=== PATIENT | male | born 1940 | race Caucasian/White ===

== ENCOUNTER 2019-09-28 10:15 | Outpatient (REF) | payer MEDICARE, SELFPAY ==
[2019-09-28 12:36] LABS: Anion Gap 8.9 mmol/L (3-11); BUN 20 mg/dL (7-18); CO2 28.1 mmol/L (21.0-32.0); Calcium 9.2 mg/dL (8.5-10.1); Calculated LDL 78 mg/dL; Chloride 109 mmol/L (98-107); Cholesterol 142 mg/dL (50-200); Estimated GFR 58.86 (mL/min/1.73m2); Glucose 81 mg/dL (70-100); HDL Cholesterol 52 mg/dL (40-60); Potassium 4.3 mmol/L (3.5-5.1); Sodium 146 mmol/L (136-145); Triglyceride 60 mg/dL (30-150)
== END 2019-09-28 10:35 ==
LOC: NCHCN 10:15
PROVIDERS: PCP Internal Medicine; Visit Provider Internal Medicine
DX: I25.10 Atherosclerotic heart disease of native coronary artery without angina pectoris (principal); J44.9 Chronic obstructive pulmonary disease, unspecified; Z72.0 Tobacco use; R05 Cough; M54.16 Radiculopathy, lumbar region; I83.90 Asymptomatic varicose veins of unspecified lower extremity
CPT/HCPCS: 80048; 80061

== ENCOUNTER 2019-10-05 02:57 | Outpatient (CLI) | payer MEDICARE, SELFPAY ==
--- NOTE | 2019-10-05 09:45 | DI.RAD_ITS ---
EXAM: XR HIP LT COMPLETE AP PELVIS, LT KNEE 3 VIEWS CLINICAL HISTORY: LT LEG PAIN M79.605 COMPARISON: XR KNEE LT 3V AP,LAT,KESHIA from 10/05/2019 FINDINGS: Three views of the hip and three views of the left knee were obtained. There is moderate narrowing o f the cartilaginous joint spaces of both hips superiorly with slight subchondral sclerosis of the christal tabula. Mild hypertrophic spurring of the acetabula noted bilaterally. Mild spurring of the greater trochanters of the femurs noted. Mild DJD of lower lumbar spine and SI joints bilaterally. Cartilaginous joint spaces of the knee appear fairly well maintained. Mild marginal osteophyte forma tion noted. Small enthesophyte of the superior patellar pole noted. 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
--- NOTE | 2019-10-05 10:40 | DI.MRI_ITS ---
EXAM: MR LUMBAR SPINE WO CLINICAL HISTORY: LUMBAR RADICULOPATHY M54.16, LT LEG PAIN M79.605. TECHNIQUE: Multiplanar multisequence MRI was performed according to the usual protocol. COMPARISON: No exams were available for comparison FINDINGS: No significant bony signal abnormality is seen. Conus medullaris appears intact. There are changes of facet hypertrophy at L4-5 and L5-S1 bilaterally. Neural foramina appear fairly well maintained. No central canal spinal stenosis. No disc herniation identified in the regions surveyed. Mild disc bulges noted at L3-4 L4-5 and L5-S1. Incidental bilateral renal cysts noted. IMPRESSION: Mild to moderate facet hypertrophic changes at L4-5 and L5-S1. No evidence of disc herniation.
== END 2019-10-05 03:17 ==
PROVIDERS: PCP Internal Medicine; Visit Provider Internal Medicine
DX: M54.16 Radiculopathy, lumbar region (principal); M79.605 Pain in left leg; M47.27 Other spondylosis with radiculopathy, lumbosacral region; M51.16 Intervertebral disc disorders with radiculopathy, lumbar region; M16.0 Bilateral primary osteoarthritis of hip; M17.12 Unilateral primary osteoarthritis, left knee
CPT/HCPCS: 73562; 72148; 73502

== ENCOUNTER → 2020-01-11 10:49 | Outpatient (BNVA) | payer MEDICARE, SELFPAY | PROVIDERS: PCP Internal Medicine; Referring Provider Internal Medicine; Visit Provider Physical Therapy Assistant | DX: Z12.11 Encounter for screening for malignant neoplasm of colon (principal); Z86.010 Personal history of colon polyps; Z80.0 Family history of malignant neoplasm of digestive organs; I10 Essential (primary) hypertension; J44.9 Chronic obstructive pulmonary disease, unspecified ==

== ENCOUNTER 2020-01-29 08:00 | Day surgery (SDC) | payer MEDICARE, SELFPAY ==
--- NOTE | 2020-01-29 06:51 | W.COLOREPORT ---
Date of service: 01/29/20 Time of Service: 09:25 Colonoscopy Report Date of procedure: 01/29/20 Pre-op diagnosis general: Hx of colon polyps Post-op diagnosis procedure note: other (jiang-diverticulosis and multiple polyps) Procedure: Colonoscopy with polypectomy by hot snare and cold forceps Surgeon: Althea Lara Anesthesia proc note operative: other (General/ ASA 2/Kizzy Ureña, ARMANDO ) Estimated blood loss (mL): 5 Pathology: other (Cecal polyp, ascending polyps x3, transverse polyp x2, rectal polyps x7) Complications: None Disposition: same day Indications: 79 y/o male with history of HTN and COPD presents for colonoscopy screening pre-op. His last screening was in 2014, which was remarkable for tubular adenomatous polyps. He reports a family history of colon cancer in his father at the age of 68. He denies any changes in bowel habits including bloody or black tarry stools, abdominal pain, diarrhea or constipation. He denies constitutional symptoms. Risks, benefits and complications have been reviewed. Complications include but are not limited to bleeding, pain, perforation, missed small lesion/polyp, sore throat, aspiration and adverse reaction to the medications. Questions were entertained and answered to their satisfaction and they wished to proceed. No guarantees were given or implied. Prep: Miralax/Dulcolax Procedure Start Time: 09:25 Procedure End Time: 10:14 Retraction Time: 37 minutes Findings: Moderate Jiang-diverticulosis Multiple sessile polyps and one pedunculated polyp Procedure Description: After informed consent was obtained the patient was taken to the procedure room and placed in a left decubitous position. Monitors were applied and a time out was done. The patients name, date of , procedure, allergies to medications and metal in their body was reviewed. The patient was then sedated. Once sedated and comfortable a rectal exam was done. External exam was normal. Internal exam revealed a normal sphincter tone and no palpable masses. The prostate felt smooth. Scrotum was noted to be large. Normal testicles were palpated. There was small bowel withing the scrotum. The scope was then introduced and retro-flexed. Grade 1 internal hemorrhoids were identified. Multiple flat polyps were noted on retro-flexion. 4 polyps were removed with cold forceps. The scope was then advanced to the cecum without difficulty. The TI and appendiceal orifice were identified. The prep was adequate. Retraction of the scope was difficult due to the patient chronic cough. The scope was then slowly retracted over [] minutes back into the rectum. Polyps were removed with cold forceps in the cecum x1, ascending colon at the ileocecal valve and ascending colon distal to the ileocecal valve, transverse colon x2, and rectum x3. One polyp was removed with a hot snare in the ascending colon just distal to the ileocecal valve. The scope was removed and the patient was woken up and taken back to Same day surgery in stable condition. The patient tolerated the procedure well and there were no immediate complications. Follow up: The patient should follow up in 3 years unless they develop changes in bowel habits or other new gastrointestinal complaints.
--- NOTE | 2020-01-29 06:52 | W.PM.DSUDISC ---
Discharge Plan Disposition Patient Disposition: HOME Condition: Good Discharge Details Reason For Visit: Hx of polyp/ Colon Cancer screening Attending Provider: Althea Lara Primary Care Provider: Cristopher Gutierrez Home Meds and New Rx's Prescriptions: Continued simvastatin 10 MG tablet 10 mg PO DAILY RF: 0 amlodipine [Norvasc] 5 MG tablet 5 mg PO DAILY RF: 0 fluticasone propionate 50 mcg/actuation spray,suspension 1 spray LOREN DAILY RF: 0 Spiriva with HandiHaler 18 mcg capsule, w/inhalation device 1 cap IH DAILY RF: 0 acetaminophen 500 mg Tablet 1,000 mg PO PRN PRNRF: 0 Discontinued polyethylene glycol 3350 17 gram/dose powder 238 g PO ONCE Qty: 238 RF: 0 bisacodyl [Dulcolax (bisacodyl)] 5 mg tablet,delayed release (DR/EC) 5 mg PO ONCE Qty: 4 RF: 0 Discharge Instructions Instructions: Diverticulosis (DC), Colorectal Polyps (GEN) Additional Instructions: Findings: Polyps x 13 Diverticulosis Follow up: 3 years Please call if you develop: fevers >101.5 Nausea or Vomiting Abdominal pain that is not transient DAY SURGERY UNIT POST ENDOSCOPY INSTRUCTIONS 1. Because there will be medication in your system for the next 24 hours, you may feel a little sleepy. Your coordination will be affected. Therefore: a. Do not drive or operate dangerous equipment for 24 hours. b. Do not drink alcohol beverages for 24 hours (not even beer). c. Plan to go home and rest for the day. 2. Generally there are no restrictions on your activity after a day or so has gone by, but you may feel a bit fatigued for a few days. 3 After you arrive home you may have a light meal and return to a normal diet as you can tolerate it without feeling sick to your stomach. 4. After surgery, you may feel pain or discomfort. This should be only transient, but if it persists please contact your doctor. 5. If there are any questions regarding the findings of your procedure, please feel free to contact your doctor. 6. If you are unable to contact your doctor with a problem, contact the hospital at [phone]. 7. Continue all your regular medications unless directed otherwise. I understand the above instructions and have no questions. Signature of Patient or Responsible Adult Escort Date/Time Name of Responsible Adult Escort Signature of Nurse Date/Time Activity:: Activity as Tolerated Diet:: high fiber diet Discharge Orders Discharge Orders: Discharge Order (Routine); Ordered 01/29/20 Ordered By: Althea Lara DS: Diagnosis Discharge Diagnosis (1) Diverticulosis large intestine w/o perforation or abscess w/o bleeding: Status: Acute (2) Colorectal polyps: Status: Acute
[2020-01-29 08:14] VITALS: BP 115/56; PULSE 65; RESP 16; TEMP 37; O2SAT 98
[2020-01-29] MEDS: Lactated Ringers 1,000 ML 80 ML IV (08:46)
--- NOTE | 2020-01-29 09:28 | BOWEL_PTH ---
PATIENT: Jorge Vang LOC: [facility] U#:[id number] AGE/SX: 79/M ROOM: RE01/29/[address]: Althea Lara MD : [id number] BED: DIS: 01/29/2020 SPEC #: [id number] RECD: 01/29/20 12:50 STATUS: NORMA REQ #: [id number] BRENDAN: 01/29/20 09:[address]: Althea Lara DEPT: Surgical Specimen RECD BY: Chaparrita Starr ENTERED: 01/29/20 12:52 SP TYPE: Bowel OTHR DR: Cristopher Gutierrez Tissues: 1 - BIOPSY BOWEL 2 - BIOPSY BOWEL 3 - BIOPSY BOWEL 4 - BIOPSY BOWEL 5 - BIOPSY BOWEL 6 - BIOPSY BOWEL Procedures: GROSS AND MICRO LEVEL 4 Comments: [id number]
[2020-01-29 10:47] VITALS: BP 125/58; PULSE 65; RESP 16; TEMP 36; O2SAT 96
== END 2020-01-29 11:05 | disposition home or self-care (01) ==
LOC: SUR 08:00
PROVIDERS: PCP Internal Medicine; Visit Provider Surgery
PROC: 0DJD8ZZ Inspection of Lower Intestinal Tract, Via Natural or Artificial Opening Endoscopic (ICD-10-PCS; CPT 45378; principal; 2020-01-29 09:30)
DX: Z12.11 Encounter for screening for malignant neoplasm of colon (principal); D12.0 Benign neoplasm of cecum; D12.2 Benign neoplasm of ascending colon; D12.3 Benign neoplasm of transverse colon; K62.1 Rectal polyp; K57.30 Diverticulosis of large intestine without perforation or abscess without bleeding; K64.1 Second degree hemorrhoids; I10 Essential (primary) hypertension; J44.9 Chronic obstructive pulmonary disease, unspecified
CPT/HCPCS: 45385; 45380; 88305

== ENCOUNTER 2020-06-04 01:08 | Outpatient (CLI) | payer MEDICARE, SELFPAY ==
--- NOTE | 2020-06-04 10:05 | DI.RAD_ITS ---
EXAM: XR SHOULDER RT COMPLETE 2+V CLINICAL HISTORY: SHOULDER PAIN CHRONIC, M25.519 TECHNIQUE: 2D digital imaging was performed. COMPARISON: No exams were available for comparison FINDINGS: There is spurring at the AC joint and undersurface of the acromion. There is spurring at the glenoh umeral joint greater inferiorly. Glenohumeral joint space is well maintained. No tendon or joint sp christal calcifications are seen. There is some spurring at the great greater and lesser tuberosities. 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
== END 2020-06-04 01:28 ==
PROVIDERS: PCP Internal Medicine; Visit Provider Internal Medicine
DX: M25.511 Pain in right shoulder (principal); M19.011 Primary osteoarthritis, right shoulder
CPT/HCPCS: 73030

== ENCOUNTER → 2020-06-12 13:20 | Outpatient (BNVA) | payer MEDICARE, SELFPAY | PROVIDERS: PCP Internal Medicine; Referring Provider Internal Medicine; Visit Provider Student in an Organized Health Care Education/Training Program | DX: M25.511 Pain in right shoulder (principal); M19.011 Primary osteoarthritis, right shoulder; J44.9 Chronic obstructive pulmonary disease, unspecified; F17.210 Nicotine dependence, cigarettes, uncomplicated; I10 Essential (primary) hypertension | CPT/HCPCS: 20610; 99204; 99215; J1040 ==

== ENCOUNTER 2020-07-29 07:36 | Outpatient (CLI) | payer MEDICARE, SELFPAY ==
--- NOTE | 2020-07-29 | DI.US_ITS ---
EXAM: US LOWER EXTREMITY VENOUS LT CLINICAL HISTORY: PHLEBITIS OF SUPERFICIAL VESSELS OF LT LOWER EXTREMITY I80.02 TECHNIQUE: Left lower extremity venous ultrasound performed using grayscale, color-flow, and spectra l Doppler analysis. COMPARISON: No exams were available for comparison FINDINGS: There is no evidence of a Diaz cyst. The soft tissues are unremarkable. There is hypoechoic thrombus extending from the common femoral vein to the posterior tibialis vein. There is also thrombus seen in the greater saphenous vein extending from the midthigh to the medial a nkle. IMPRESSION: Extensive thrombus extending from the common femoral vein to the posterior tibialis vein. Superficial thrombophlebitis. DATA REPOSITORY:
== END 2020-07-29 07:56 ==
PROVIDERS: PCP Internal Medicine; Visit Provider Internal Medicine
DX: I80.02 Phlebitis and thrombophlebitis of superficial vessels of left lower extremity (principal); I82.412 Acute embolism and thrombosis of left femoral vein; I82.442 Acute embolism and thrombosis of left tibial vein
CPT/HCPCS: 93971

== ENCOUNTER → 2020-09-18 09:47 | Outpatient (BNVA) | payer MEDICARE, SELFPAY | PROVIDERS: PCP Internal Medicine; Referring Provider Internal Medicine; Visit Provider Student in an Organized Health Care Education/Training Program | DX: M19.011 Primary osteoarthritis, right shoulder (principal) | CPT/HCPCS: 20610; 99214; J1040 ==

== ENCOUNTER 2021-11-10 15:11 | Outpatient (REF) | payer MEDICARE, SELFPAY ==
[2021-11-10 18:40] LABS: ALT 22 U/L (16-63); AST 15 U/L (15-37); Albumin 3.9 g/dL (3.4-5.0); Alkaline Phosphatase 54 U/L (46-116); Anion Gap 8.7 mmol/L (3-11); BUN 25 mg/dL (7-18); Bilirubin, Total 0.4 mg/dL (0.2-1.0); CO2 28.3 mmol/L (21.0-32.0); CREATININE 1.2 mg/dL (0.70-1.30); Calcium 9.3 mg/dL (8.5-10.1); Chloride 108 mmol/L (98-107); Estimated GFR 58.56 (mL/min/1.73m2); Glucose 99 mg/dL (74-106); Potassium 4.5 mmol/L (3.5-5.1); Sodium 145 mmol/L (136-145)
== END 2021-11-10 15:12 | disposition home or self-care (01) ==
LOC: NCHCN 15:11
PROVIDERS: PCP Internal Medicine; Visit Provider Family Medicine
DX: I10 Essential (primary) hypertension (principal)
CPT/HCPCS: 80053

== ENCOUNTER 2022-11-09 12:44 | Outpatient (REF) | payer MEDICARE, SELFPAY ==
[2022-11-09 15:01] LABS: HCT 41.2 % (40.0-50.0); HGB 13.2 g/dL (13.5-17.5); MCV 97 fL (80-95); MPV 10.3 fL (8.0-11.0); Platelet Count 231 10^3/uL (130-400); RBC 4.26 10^6/uL (4.36-5.78); RDW 13.5 % (11.8-14.1); RDW-SD 48.2 fL; WBC 7.58 10^3/uL (4.4-10.8)
[2022-11-09 15:09] LABS: Anion Gap 8.2 mmol/L (3-11); BUN 29 mg/dL (7-18); CO2 27.8 mmol/L (21.0-32.0); CREATININE 1.4 mg/dL (0.70-1.30); Calcium 9.2 mg/dL (8.5-10.1); Chloride 108 mmol/L (98-107); Estimated GFR 51.13 (mL/min/1.73m2); Glucose 96 mg/dL (74-106); Potassium 4.3 mmol/L (3.5-5.1); Sodium 144 mmol/L (136-145)
== END 2022-11-09 12:45 | disposition home or self-care (01) ==
LOC: NCHCN 12:44
PROVIDERS: PCP Internal Medicine; Visit Provider Family Medicine
DX: I10 Essential (primary) hypertension (principal); J44.9 Chronic obstructive pulmonary disease, unspecified
CPT/HCPCS: 80048; 85027

== ENCOUNTER 2023-12-15 15:55 | Outpatient (REF) | payer MEDICARE, SELFPAY ==
[2023-12-15 14:10] LABS: Abs Immature Grans 0.03 10^3/uL (0.0-0.06); Absolute Basophil Count 0.07 10^3/uL (0.0-0.2); Absolute Eosinophil Count 0.39 10^3/uL (0.0-0.7); Absolute Lymphocyte Count 1.28 10^3/uL (1.2-3.4); Absolute Monocyte Count 0.63 10^3/uL (0.1-0.8); Absolute Neutrophil Count 6.23 10^3/uL (1.2-6.7); Basophils % 0.8; Eosinophils % 4.5; HCT 43.1 % (40.0-50.0); Immature Grans % 0.3; Lymphocytes % 14.8; MCH 31.3 pg (27.0-33.0); MCHC 32.5 % (32.0-36.0); MCV 96 fL (80-95); MPV 10.8 fL (8.0-11.0); Monocytes % 7.3; Neutrophils % 72.3; Platelet Count 219 10^3/uL (130-400); RBC 4.48 10^6/uL (4.36-5.78); RDW 13.6 % (11.8-14.1); RDW-SD 48.1 fL; WBC 8.63 10^3/uL (4.4-10.8)
[2023-12-15 14:28] LABS: ALT 22 U/L (16-63); AST 10 U/L (15-37); Albumin 3.7 g/dL (3.4-5.0); Alkaline Phosphatase 61 U/L (46-116); Anion Gap 7.4 mmol/L (3-11); BUN 25 mg/dL (7-18); Bilirubin, Total 0.3 mg/dL (0.2-1.0); CO2 29.6 mmol/L (21.0-32.0); CREATININE 1.3 mg/dL (0.70-1.30); Calcium 9.1 mg/dL (8.5-10.1); Chloride 110 mmol/L (98-107); Estimated GFR 55.53 (mL/min/1.73m2); Glucose 99 mg/dL (74-106); Potassium 4.4 mmol/L (3.5-5.1); Sodium 147 mmol/L (136-145); Total Protein 7.2 g/dL (6.4-8.2)
== END 2023-12-15 15:56 | disposition home or self-care (01) ==
LOC: NCHCN 15:55
PROVIDERS: PCP Internal Medicine; Visit Provider Family Medicine
DX: I10 Essential (primary) hypertension (principal)
CPT/HCPCS: 80053; 85025

== ENCOUNTER 2024-12-21 10:10 | Outpatient (REF) | payer MEDICARE, SELFPAY ==
[2024-12-21 15:13] LABS: Abs Immature Grans 0.02 10^3/uL (0.0-0.06); Absolute Basophil Count 0.05 10^3/uL (0.0-0.2); Absolute Eosinophil Count 0.29 10^3/uL (0.0-0.7); Absolute Lymphocyte Count 1.06 10^3/uL (1.2-3.4); Absolute Monocyte Count 0.43 10^3/uL (0.1-0.8); Basophils % 0.7 %; Eosinophils % 3.8 %; Immature Grans % 0.3 %; Lymphocytes % 13.9 %; MCH 30.5 pg (27.0-33.0); MCHC 31.8 % (32.0-36.0); MCV 96 fL (80-95); MPV 10.4 fL (8.0-11.0); Monocytes % 5.6 %; Neutrophils % 75.7 %; Platelet Count 254 10^3/uL (130-400); RBC 4.59 10^6/uL (4.36-5.78); RDW-SD 45.6 fL; WBC 7.65 10^3/uL (4.4-10.8)
[2024-12-21 15:33] LABS: Anion Gap 7.2 mmol/L (3-11); BUN 25 mg/dL (7-18); CO2 28.8 mmol/L (21.0-32.0); CREATININE 1.5 mg/dL (0.70-1.30); Calcium 9.4 mg/dL (8.5-10.1); Chloride 111 mmol/L (98-107); Estimated GFR 46.48 (mL/min/1.73m2); Glucose 95 mg/dL (74-106); Potassium 4.8 mmol/L (3.5-5.1); Sodium 147 mmol/L (136-145)
== END 2024-12-21 10:11 | disposition home or self-care (01) ==
LOC: NCHCN 10:10
PROVIDERS: PCP Family Medicine; Visit Provider Family Medicine
DX: I10 Essential (primary) hypertension (principal)
CPT/HCPCS: 80048; 85025